=== PATIENT | female | born 1995 | race Two or more races ===

== ENCOUNTER 2023-06-15 10:05 | Emergency (ER) | payer OTHER ==
[~2023-06-15] VITALS: Ht 157.5 cm; Wt 60.3 kg
[2023-06-15 11:06] LABS: HEMATOCRIT 41.9 % (36.0-45.00); HEMOGLOBIN 13.6 g/dL (12.0-15.00); MEAN CELL VOLUME 94.5 fL (80.00-100.00); MEAN CORPUSCULAR HEMOGLOBIN 30.6 pg (27.00-32.0); MEAN CORPUSCULAR HGB CONC 32.4 g/dl (32.0-36.0); PLATELET COUNT 341 K/uL (150-450); RED BLOOD COUNT 4.43 M/uL (4.00-6.00); RED CELL DISTRIBUTION WIDTH 13.4 % (11.5-14.5)
[2023-06-15 11:30] LABS: PH,URINE 5.5 (5.0-8.0); URINE APPEARANCE Cloudy; URINE BILIRRUBIN Negative (NEGATIVE); URINE BLOOD Moderate; URINE COLOR Yellow; URINE GLUCOSE Negative (NEGATIVE); URINE LEUKOCYTE Small; URINE NITRATE Negative; URINE PROTEIN Negative (NEGATIVE); URINE UROBILINOGEN 0.2 E.U./dl
[2023-06-15 11:35] LABS: URINE BACTERIA 3142.2 uL (0.0-1933); URINE EPITHELIAL CELLS 77.1 uL (0.0-38.8); URINE RBC 21.8 uL (0.0-20.8); URINE WBC 61.3 uL (0.0-23.2)
[2023-06-15 11:46] LABS: CALCIUM 9.2 mg/dL (8.5-10.1); CREATININE SERUM 0.7 mg/dL (0.55-1.02); GFR 100.38; POTASSIUM 4.27 mEq/L (3.5-5.1)
[2023-06-15 12:16] LABS: INR 0.95; PARTIAL THROMBOPLASTIN TIME 29.2 SECONDS (22.0-34.0)
== END 2023-06-15 17:45 | disposition home or self-care (01) ==
LOC: ER 10:05
PROVIDERS: General Practice
DX: O23.40 Unspecified infection of urinary tract in pregnancy, unspecified trimester (principal); N39.0 Urinary tract infection, site not specified